=== PATIENT | male | born 1980 | race Two or more races ===

== ENCOUNTER 2024-09-02 10:26 | Emergency (ER) | payer MEDICAID, SELFPAY ==
[2024-09-02 10:27] VITALS: BP 159/90; PULSE 76; RESP 19; TEMP 37; O2SAT 96
[2024-09-02 10:48] VITALS: PULSE 92; RESP 22; O2SAT 99; BMI 32.3
--- NOTE | 2024-09-02 11:21 | PD.EDADULT ---
ED General RME/HPI General Chief complaint: Psychiatric Symptoms Stated complaint: MENTAL EVAL Time Seen by Provider: 09/02/24 10:46 Arrival date/time: 09/02/24 10:26 Limitations: no limitations RME / HPI RME / HPI narrative: DR. PENA MAIN ED EVALUATION: 44 year old male with past medical history significant for schizophrenia presents to the Emergency Department [facility] from half-way, patient was placed on a hold for gravely disabled by social worked at the half-way. Per EMS, half-way staff told them the patient did not want to talk at all. Here, he is oriented but chooses not to talk. EMS states the patient talked to them and he denies any suicidal ideation, homicidal ideation, or hallucinations. Related Data Home Medications ?Medication ?Instructions ?Recorded ?Confirmed atenolol 25 mg tablet 25 mg PO QDAY 07/29/19 06/02/21 albuterol sulfate 90 mcg/actuation 1 puff inhalation Q6H PRN ALLERGY 06/02/21 06/02/21 aerosol inhaler cyclobenzaprine 10 mg tablet 10 mg PO QDAY 06/02/21 06/02/21 fluticasone propionate 50 1 spray intranasal QDAY 06/02/21 06/02/21 mcg/actuation nasal spray,suspension lisinopril 20 mg tablet 20 mg PO QDAY 06/02/21 06/02/21 lovastatin 20 mg tablet 20 mg PO QDAY 06/02/21 06/02/21 metoclopramide HCl 10 mg tablet 10 mg PO BID 06/02/21 06/02/21 omeprazole 40 mg capsule,delayed 40 mg PO QDAY 06/02/21 06/02/21 release sucralfate 1 gram tablet 1 g PO BID 06/02/21 06/02/21 Allergies Allergy/AdvReac Type Severity Reaction Status Date / Time No Known Allergies Allergy Verified 09/02/24 10:52 Review of Systems Review of Systems Systems Reviewed: All systems reviewed, normal except as documented Past Medical History Past Medical History CARDIAC: Positive Hypercholesterolemia and Hypertension; Negative Congestive Heart Failure RESPIRATORY: Negative Chronic Obstructive Pulmonary Disease (COPD) GENITOURINARY: Negative Renal Disease ENDOCRINE: Negative Diabetes Mellitus Type 1 or Diabetes Mellitus Type 2 PSYCHO/SOCIAL: Positive Schizophrenia Social History SMOKING STATUS: Current every day smoker SUBSTANCE USE: methamphetamine ED Exam General Limitations: Present no limitations General appearance: Present alert and other (Does not want to answer any questions but he is alert. He is restless and moving his digits from bilateral upper and lower extremities. ) Head Head exam: Present atraumatic Eye Eye exam: Present normal appearance, PERRL and EOMI ENT ENT exam: Present normal exam, normal oropharynx and mucous membranes moist Neck Neck exam: Present normal inspection, full ROM and trachea midline Chest Chest inspection: Present normal inspection and symmetric chest wall rise Respiratory Respiratory exam: Present normal lung sounds bilaterally Cardiovascular Cardiovascular exam: Present regular rate, normal rhythm and normal heart sounds Abdominal Exam Abdominal exam: Present soft and normal bowel sounds Extremities Exam Extremities exam: Present normal inspection, full ROM and other (Left thumb blister.) Back Exam Back exam: Present normal inspection and full ROM Neurological Exam Neurological exam: Present alert, oriented X3 and CN II-XII intact Psychiatric Psychiatric exam: Present normal affect and normal mood Skin Skin exam: Present warm, dry, intact and normal color Course Quality Measures none Orders Category Date Time Status Diet Regular Diet 09/02/24 Dinner Active Acetaminophen Stat Lab 09/02/24 11:30 Completed Alcohol, Blood Medical Stat Lab 09/02/24 11:30 Completed Basic Metabolic Panel Stat Lab 09/02/24 11:30 Completed CBC Stat Lab 09/02/24 11:30 Completed Drug Screen,Urine Stat Lab 09/02/24 11:56 Completed Salicylate Stat Lab 09/02/24 11:30 Completed Haloperidol Lactate [Haldol Inj] Med 09/02/24 11:10 Discontinued 5 mg IM X1 ONE Vital Signs Vital signs: Vital Signs Temperature 98.6 F 09/02/24 10:27 Pulse Rate 76 09/02/24 10:27 Respiratory Rate 19 09/02/24 10:27 Blood Pressure 159/90 H 09/02/24 10:27 Pulse Oximetry (%) 96 09/02/24 10:27 Oxygen Delivery Method Room Air 09/02/24 10:27 Discharge Plan Prescriptions/Referrals Prescriptions/Med Rec: No Action cyclobenzaprine 10 mg tablet 10 mg PO QDAY sucralfate 1 gram tablet 1 g PO BID lisinopril 20 mg tablet 20 mg PO QDAY omeprazole 40 mg capsule,delayed release(DR/EC) 40 mg PO QDAY lovastatin 20 mg tablet 20 mg PO QDAY albuterol sulfate 90 mcg/actuation HFA aerosol inhaler 1 puff INHALATION Q6H PRN (Reason: ALLERGY) Patient Comments: INHALE 1 PUFF BY MOUTH EVERY 6 HOURS NEEDED fluticasone propionate 50 mcg/actuation spray,suspension 1 spray INTRANASAL QDAY Patient Comments: INSTILL ONE SPRAY IN EACH NOSTRIL EVERY DAY metoclopramide HCl 10 mg tablet 10 mg PO BID atenolol 25 mg Tablet 25 mg PO QDAY Referrals: No Primary/Family,Physician [Primary Care Provider] - In 1 week Problem List Clinical Impression: Chronic schizophrenia Patient/Caregiver Discharge Instructions Print Language: Samoan MDM Narrative [facility] hospital course: I, Sultana Gtz am scribing for and in the presence of Dr. Pena. Clinical Information Provided by patient Medical Records Reviewed [facility] Meds/Rx Considered, not Ordered None Labs/Rad/Tests considered, not Ordered None Chronic Illness/Social Conditions Add or document further as needed: schizophrenia EKG EKG not done Imaging Imaging interpretation: none Medication Administration(s) Medication Administration History Discontinued Medications Haloperidol Lactate (Haloperidol Lact Inj 5 Mg/Ml Vial) 5 mg IM X1 ONE Stop: 09/02/24 11:11 Last Admin: 09/02/24 11:36 Dose: 5 mg Documented By: CAROLE Diagnosis Differential diagnosis: schizophrenia, behavioral problem Dispositon Disposition: other (signed out to Dr. Brown) Disposition comments: 1800: Patient was signed out to Dr. Brown. Past medical, surgical, social and family history reviewed. Vitals and home medications reviewed. Results and treatment plan discussed. They will assume the care of the patient at this time and will follow the patient, pending placement.
[2024-09-02 11:32] VITALS: BMI 25.1
[2024-09-02] MEDS: HALOPERIDOL LACT INJ 5 MG/ML VIAL IM (11:36)
--- NOTE | 2024-09-02 11:39 | PC.NURSE ---
Patient present to ED with from sent from [facility] care home for gravely disabled 5150 hold. Per flight operations dispatch clerk was sent in due to not answering questions to staff at [facility], per flight operations dispatch clerk answered his questions denying SI/HI. Patient at this time when asked any question is answering only yes, without thinking about questions. Patient laying in gurney, following orders, but did not provide UA sample as decided to drink water from faucet instead. Patient is not appropriately answering all questions and is not responding well to Hull scale questions, Rn will attempt at a later time. evening sitter at bedside.
[2024-09-02 11:41] LABS: Basophils % (Auto) 0 % (0-2.5); Eosinophils % (Auto) 1 % (0-10); Hematocrit 40.8 % (41.0-53.0); Hemoglobin 13.9 g/dL (13.5-16.0); Immature Granulocytes % (Auto) 0 % (0-0); Immature Granulocytes Auto 0.03 Thou/mm3 (0.00-0.00); Lymphocytes # (Auto) 1.6 Thou/mm3 (1.0-4.8); Lymphocytes % (Auto) 19 % (10-50); Mean Corpuscular HGB Conc 34.1 g/dl (31.0-37.0); Mean Corpuscular Hemoglobin 27.3 pg (25.0-35.0); Mean Corpuscular Volume 80 fL (80-100); Monocytes # (Auto) 0.9 Thou/mm3 (0.0-0.8); Monocytes % (Auto) 11 % (0-12); Neutrophils # (Auto) 5.7 Thou/mm3 (1.8-7.7); Neutrophils % (Auto) 69 % (37-80); Nucleated Red Blood Cell % 0 /100 WBC (0); Platelet Count 165 Thou/mm3 (140-440); RDW Standard Deviation 35.1 fL (35.1-43.9); Red Blood Count 5.09 Miln/mm3 (4.50-5.90); White Blood Count 8.3 Thou/mm3 (3.8-10.6)
[2024-09-02 12:09] LABS: Acetaminophen < 2.0 mcg/mL (10.0-20.0); Alcohol, Blood Medical < 3.0 mg/dL (0-10.0); Anion Gap 13 (7-16); BUN/Creatinine Ratio 18 Ratio (12-20); Blood Urea Nitrogen 14 mg/dL (9-23); Calcium 9.2 mg/dL (8.3-10.6); Carbon Dioxide 24.5 mMol/L (20.0-31.0); Chloride 95 mMol/L (98-107); Creatinine (Component) 0.8 mg/dL (0.6-1.3); Estimated Creatinine Clearance 116.6 mL/min (>60); Glucose 111 mg/dL (74-106); Osmolality,Calculated 266 (275-295); Potassium 3.8 mMol/L (3.4-5.1); Salicylate < 3.0 mg/dL; Sodium 132 mMol/L (136-145); eGFR > 60 See Note
[2024-09-02 12:18] LABS: Amphetamine/Methamp Scrn,U Negative (Negative); Barbiturate Screen,Urine Negative (Negative); Benzodiazepines Screen,Urine Negative (Negative); Benzoylecgonine Screen, Ur Negative (Negative); Fentanyl Screen,Urine Negative (Negative); Opiate Screen,Urine Negative (Negative); THC Screen,Urine Negative (Negative)
--- NOTE | 2024-09-02 13:11 | PC.NURSE ---
RN spoke with Danae Keys at [facility], accepted by Dr Williamson, [address].
--- NOTE | 2024-09-02 13:11 | PC.CM ---
Pt Baltazar Keene is a 44-year-old male brought in to ED by ambulance on a hold from [facility]. Pt has extensive hx of mental health. Pt refusing to verbally engage with medical team. Pt placed in ED 7. Credit Portfolio Manager awaiting Tox report and medical clearance for Pt in order to create 5150 placement packet and begin looking for LPS placement for Pt. Pt medically cleared at this time and awaiting LPS placement.
--- NOTE | 2024-09-02 13:41 | PC.CC ---
Driftman received notification from [facility]- no bed available. [facility] accepted Pt with ETA of 1600. Driftman received call back from [facility] - acceptance was revoked due to Pt needs.
--- NOTE | 2024-09-02 13:45 | PC.CC ---
Spa Receptionist began contacting all adult LPS facilities. [facility] - no beds available [facility] - no beds available [facility] - no beds available [facility]- in consideration [facility] - [facility] beds available [facility]- [facility] beds available [facility]- in consideration
--- NOTE | 2024-09-02 14:10 | PC.CC ---
Guard Lieutenant continues to contact all adult LPS facilites [facility]- considering
--- NOTE | 2024-09-02 14:21 | PC.CC ---
Environmental Project Manager received telephone call from [facility], bed had become available, will call back with acceptance confirmation.
--- NOTE | 2024-09-02 14:46 | PC.CC ---
Informal Waiter/Waitress received phone from [facility]- No male beds available.
--- NOTE | 2024-09-02 17:24 | EDNOTE_ITS ---
Emergency Room Addendum <Sultana Gtz - Last Filed: 09/02/24 17:54> Addendum Narrative: I took over the care from Dr. Pena, the previous shift physician at 1800 hours on 08/29/2024.? See previous notes for complete H & P and ED course. I reviewed all diagnostic test results. My interpretation of the EKG is? My interpretation of the chest x-ray is My review of the CT report is? Blood tests and urine tests Diagnoses include Treatment here included Significant improvement Not yet done: I discussed the case with our hospitalist.? About the presentation and exam and diagnostics and treatments here.? And need of further care in the hospital. Will accept the patient. Not yet done: Based on my best medical judgment, made decision no further evaluation or treatment indicated at this time.? Patient understands and agrees to the [facility] rge instructions customized and printed, see below. Jesus Brown MD <Erendira Morrell - Last Filed: 09/03/24 02:49> Addendum Narrative: I took over the care from Dr. Pena, the previous shift physician at 1800 hours on 08/29/2024.? See previous notes for complete H & P and ED course. Patient was signed out to me pending 5150 psychiatric placement. Patient has remained stable while under my care. At 0600 on 09/03/2024, patient is signed out to Dr. Pena pending crisis evaluation. Jesus Brown MD <Jesus Brown MD - Last Filed: 09/03/24 02:57> Addendum Narrative: I took over the care from Dr. Pena, the previous shift physician, at 1800 on 08/29/2024.? See previous notes for complete H & P and ED course. Patient is waiting for inpatient psychiatric placement. At 0600 on 09/03/2024, transfer care to Dr. Pena. During my watch, the patient remained stable. Jesus Brown MD
[2024-09-02 18:25] VITALS: BP 152/84; PULSE 78; RESP 19; TEMP 37.1; O2SAT 96
[2024-09-03] VITALS (7 sets, daily range): BP systolic 132–165; BP diastolic 72–99; PULSE 69–85; RESP 16–20; TEMP 36.3–37; O2SAT 95–99
--- NOTE | 2024-09-03 04:31 | PC.NURSE ---
Pt awake, asking for a snack. Provided pt with sandwich, juice. Tolerated well. Pt denies any complaints at this time.
--- NOTE | 2024-09-03 05:35 | EDNOTE_ITS ---
Emergency Room Addendum <Erendira Morrell - Last Filed: 09/03/24 05:35> Addendum Narrative: 0530: Care assumed from Dr. Pena, the previous shift emergency physician. Past medical, surgical, social and family history reviewed. Vitals and home medications reviewed. Results and treatment plan discussed. I will assume the care of the patient at this time and will follow the patient, pending 5150 psychiatric placement. Please refer to the emergency department record for history and examination from initial visit. <Sultana Gtz - Last Filed: 09/03/24 17:59> Addendum Narrative: 0530: Care assumed from Dr. Pena, the previous shift emergency physician. Past medical, surgical, social and family history reviewed. Vitals and home medications reviewed. Results and treatment plan discussed. I will assume the care of the patient at this time and will follow the patient, pending 5150 psychiatric placement. Please refer to the emergency department record for history and examination from initial visit. The patient was placed in ED observation care at 09/03/2024 at 0600 hours. The patient was placed in ED observation care because of undifferentiated decomp ensated behavioral health evaluation, no behavioral health bed available. The patients past medical history, social history, and family history were reviewed. The plan of care will include serial examinations. While in ED observation the patient will have access to water, food, and personal hygiene. If the patient takes home medication(s), they will be continued in ED observation. Physical exam by me shows patient under no acute distress at this time. 1800: Patient was signed out to Dr. Delgado. Past medical, surgical, social and family history reviewed. Vitals and home medications reviewed. Results and treatment plan discussed. They will assume the care of the patient at this time and will follow the patient, pending placement. My ED observation care ended at 09/03/2024 at 0600 hours.
--- NOTE | 2024-09-03 07:52 | PC.CC ---
Addendum entered by Kate Prabhakar 09/03/24 17:02: ASW contacted the following [facility] facilities and they have declined due to capacity: Kory Nagy In que: [facility] Declined due to past h/o of aggression: Jeff Garcia Original Note: ASW will resubmit the pts chart to all [facility] via William and will f/u with calls to local facilites as well.
--- NOTE | 2024-09-03 18:18 | PD.EDADDENDU ---
Emergency Room Addendum Addendum Narrative: 1800: Care assumed from Dr. Pena (emergency physician). Past medical, surgical, social and family history reviewed. Vitals and home medications reviewed. Results and treatment plan discussed. They will assume the care of the patient at this time and will follow the patient, pending transfer. The following addendum documentation note is intended to reflect any pending information, findings, or radiology results not included in the patient?s initial chart by the previous shift scribe. 0600: [facility] [place] [facility]. Past medical, surgical, social and family history reviewed. Vitals and home medications reviewed. Results and treatment plan discussed. They will assume the care of the patient at this time and will follow the patient, pending transfer to psych facility.
[2024-09-04 04:00] VITALS: BP 147/87; PULSE 72; RESP 19; TEMP 36.4; O2SAT 96
--- NOTE | 2024-09-04 07:20 | EDNOTE_ITS ---
Emergency Room Addendum Addendum Narrative: 0600: Care assumed from Dr. Delgado, the previous shift emergency physician. Past medical, surgical, social and family history reviewed. Vitals and home medications reviewed. I will assume the care of the patient at this time, pending psychiatric placement. Please refer to the emergency department record for history and examination from initial visit. The patient was placed in ED observation care at 09/04/2024 at 0600 hours. The patient was placed in ED observation care because of undifferentiated decompensated behavioral health evaluation, no behavioral health bed available. The patients past medical history, social history, and family history were reviewed. The plan of care will include serial examinations. While in ED observation the patient will have access to water, food, and personal hygiene. If the patient takes home medication(s), they will be continued in ED observation. Physical exam by me shows patient under no acute distress at this time. 1007: Patient has been accepted to [facility]. ETA is 1230 hours. 1225: EMS here to pick the patient and transport to [facility]. ED observation care ended at 09/04/2024 at 1225 hours.
--- NOTE | 2024-09-04 08:05 | PC.CC ---
Addendum entered by Kayli Degroot 09/04/24 09:01: 0857 [facility], Aprita reports they closed referral to resend it. ASW [facility]. [facility] and is probably still being transmitted. ASW refaxed referral. 0845 [facility] [place] patient is still in queue they will be reviewing packet[facility] and notify social media strategist. 0837 [facility] Melissa Higginbotham reports that there are no open male beds. Original Note: Kayli ENCARNACION resent referral to [facility] facilities via fax. ASW made telephone with [facility] spoke to staff, Loli who reports that patient has not been connected to them since July of 2024 due to not being compliant with outpatient mental health services.
[2024-09-04 08:23] VITALS: BP 150/90; PULSE 71; RESP 18; TEMP 36.8; O2SAT 96
--- NOTE | 2024-09-04 09:08 | PC.NURSE ---
Patient lying in gurney quietly no distress noted, patient states he does not know what he is waiting for, patiient made aware of plan of care. Patient alert and oriented x 3, skin is warm dry and pink, patient awaiting placement for being gravely disabled, umable to care for himself. Patient denies pain, patient denies SI and HI, patient denies feeling depressed. Patient states he does have trouble sleeping at night and has had trouble for years. Patient ate breakfast this am. [address] Patient has no other needs at this time.
--- NOTE | 2024-09-04 09:53 | PC.NURSE ---
Report given to BEE nurse at [facility], Dr. Rojo accepting patient to their facility will accept patient at 1400 today, will notify S/S worker Daniel to set up transport, charge nurse minerva schmitt.
--- NOTE | 2024-09-04 09:53 | PC.CC ---
ASWKayli was provided with accepting information. Patient was accepted to [facility], Dr. Rojo is accepting. ASW to arrange transportation. ASW provided updated d/c plan to Dr. Mccullough, electronic typesetting machine operator Lanise, and bedside CHELLE Rendon.
[2024-09-04 12:06] VITALS: BP 148/91; PULSE 68; RESP 18; TEMP 36.8; O2SAT 96
--- NOTE | 2024-09-04 12:33 | PC.NURSE ---
Sample Dye Mix[facility] here to transport patient to [facility], Report given.
== END 2024-09-04 12:40 ==
PROVIDERS: Family Medicine; Emergency Provider Emergency Medicine
DX: Z04.6 Encounter for general psychiatric examination, requested by authority (principal); F20.9 Schizophrenia, unspecified
CPT/HCPCS: 36415; 80048; 80307; 80320; 80329; 85025; 96127; 96372; 99285; J1630; G0480

== ENCOUNTER 2024-09-25 02:25 | Emergency (ER) | payer MEDICAID, SELFPAY ==
[2024-09-25 02:31] VITALS: BP 146/95; PULSE 75; RESP 19; TEMP 37.3; O2SAT 96
--- NOTE | 2024-09-25 02:43 | XR_ITS ---
Examination: CT abdomen with intravenous contrast CT pelvis with intravenous contrast 2-D coronal reconstructions 2-D sagittal reconstructions Date and time of exam:September 25, 2024, 0512 hours INDICATIONS: Abdominal pain nausea vomiting beginning 7 days ago, diagnosis cirrhosis. CTDI: vol (mGy) 9.72. DLP: (mGycm) 647. Technique: Multiple axial sections of the abdomen and pelvis have been obtained. 64 slice high-resolution scanner used. 3 mm axial sections have been obtained, post intravenous injection of 60 cc [id number] 2-D sagittal, coronal reconstructions obtained. Low dose protocols were performed. One or more of the following dose reduction techniques were used; automated exposure control, adjustment of the mA and/or KV according to patient size, use of iterative reconstruction technique. Findings: Cirrhosis, liver nodular in contour Mild to moderate ascites Thickening of the gastric singh Thickening of the gallbladder wall No pancreatic mass is No hydronephrosis No bowel obstruction Aorta normal size Normal appendix Thickening of the urinary bladder wall Intact osseous structures IMPRESSION: Cirrhosis [id number] ascites. Gastritis pattern Gallbladder wall edema, clinical correlation is advised, consider HIDA scan or MRCP follow-up Cystitis pattern
[2024-09-25 03:15] LABS: Collection Type, Urine Clean Catch; RBC,Urine 0 /hpf (0-3)
[2024-09-25 03:22] LABS: Amorphous Crystals,Urine Present (Absent); Bacteria,Urine 1+; Bilirubin,Urine 4+ (Negative); Blood,Urine Negative (Negative); Clarity,Urine Turbid (Clear/Hazy); Color,Urine Drk-Yellow (Lt Yel-Yel); Glucose, Urine 2+ (Negative); Granular Casts,Urine < 1 /hpf (0-1); Ketones,Urine Negative (Negative); Leukocyte Esterase,Urine Negative (Negative); Nitrite,Urine Negative (Negative); PH,Urine 6.0 (5.0-7.0); Protein,Urine Trace (Neg - Trace); Specific Gravity,Urine 1.023 (1.001-1.035); Squamous Epithelial Cell,Urine 1 /hpf (0-5); Urobilinogen,Urine Negative mg/dL (0.0-1.0); WBC,Urine 18 /hpf (0-5)
[2024-09-25 03:23] LABS: Culture Indicated,Urine Yes
[2024-09-25 03:38] LABS: Lactate (Lactic Acid) 3.2 mMol/L (0.4-2.0)
[2024-09-25 03:40] LABS: Basophils # (Auto) 0.0 Thou/mm3 (0.0-0.2); Basophils % (Auto) 0 % (0-2.5); Eosinophils # (Auto) 0.2 Thou/mm3 (0.0-0.5); Eosinophils % (Auto) 2 % (0-10); Hematocrit 41.7 % (41.0-53.0); Hemoglobin 14.0 g/dL (13.5-16.0); Immature Granulocytes Auto 0.09 Thou/mm3 (0.00-0.00); Lymphocytes # (Auto) 2.7 Thou/mm3 (1.0-4.8); Lymphocytes % (Auto) 27 % (10-50); Mean Corpuscular HGB Conc 33.6 g/dl (31.0-37.0); Mean Corpuscular Hemoglobin 27.3 pg (25.0-35.0); Mean Corpuscular Volume 81 fL (80-100); Monocytes # (Auto) 1.5 Thou/mm3 (0.0-0.8); Monocytes % (Auto) 15 % (0-12); Neutrophils # (Auto) 5.6 Thou/mm3 (1.8-7.7); Neutrophils % (Auto) 56 % (37-80); Nucleated Red Blood Cell # 0.00 Thou/mm3 (0.00-0.00); Nucleated Red Blood Cell % 0 /100 WBC (0); Platelet Count 142 Thou/mm3 (140-440); RDW Standard Deviation 49.6 fL (35.1-43.9); Red Blood Count 5.12 Miln/mm3 (4.50-5.90); White Blood Count 10.1 Thou/mm3 (3.8-10.6)
[2024-09-25 04:17] LABS: INR 2.6 (0.9-1.3); Partial Thromboplastin Time 44.4 Seconds (22.0-36.0); Prothrombin Time 27.0 Seconds (9.0-12.2)
[2024-09-25 04:21] LABS: Alanine Aminotransferase 594 U/L (10-49); Albumin, Serum 2.9 gm/dL (3.5-5.0); Albumin/Globulin Ratio 0.6 (1.2-2.2); Alkaline Phosphatase 253 U/L (46-116); Anion Gap 6 (7-16); Aspartate Amino Transferase 302 U/L (0-34); BUN/Creatinine Ratio 6 Ratio (12-20); Blood Urea Nitrogen < 5 mg/dL (9-23); Calcium 8.0 mg/dL (8.3-10.6); Calcium (Corrected) 8.9 mg/dL (8.5-10.1); Carbon Dioxide 24.3 mMol/L (20.0-31.0); Chloride 97 mMol/L (98-107); Creatinine (Component) 0.9 mg/dL (0.6-1.3); Globulin 4.6 gm/dL (2.3-3.5); Glucose 152 mg/dL (74-106); Lipase 54 U/L (12-53); Osmolality,Calculated 255 (275-295); Potassium 3.6 mMol/L (3.4-5.1); Procalcitonin 0.76 ng/ml (0.0-0.49); Sodium 127 mMol/L (136-145); Total Protein 7.5 gm/dL (5.7-8.2); eGFR > 60 See Note
[2024-09-25] MEDS: ONDANSETRON INJ 2 MG/ML INJ 2 ML 4 MG IV (04:34)
--- NOTE | 2024-09-25 04:43 | XR_ITS ---
Examination: AP chest single view TECHNIQUE: AP portable upright chest single view Date and time: September 25, 2024 0459 hours INDICATIONS: Epigastric pain today. FINDINGS: Normal heart size. The lungs are clear. The osseous structures are intact. IMPRESSION: No active disease.
[2024-09-25 04:47] LABS: Bilirubin,Total 22.5 mg/dL (0.3-1.2)
--- NOTE | 2024-09-25 04:53 | XR_ITS ---
Examination: Abdomen sonogram, Limited Date and time of exam: September 25, 2024 0742 hours INDICATIONS: Elevated liver function tests on laboratory examination today including bilirubin Technique: Real-time chapman scale transabdominal sonographic images of the upper abdomen obtained. Findings: Negative for gallstones Gallbladder wall 0.42 cm no edema Common bile duct 0.3 cm Pancreatic head 3.2 cm Liver 14.0 cm irregular contour fatty infiltration, mild ascites Normal hepatopedal portal venous flow Patent IVC IMPRESSION: Negative for cholelithiasis, gallbladder wall mildly thickened but the patient has ascites Cirrhosis
--- NOTE | 2024-09-25 05:39 | PD.EDABDPN ---
ED Abdominal Pain RME/HPI General Chief Complaint: Abdominal Pain Stated complaint: ABD PAIN Time seen by provider: 09/25/24 02:41 Arrival date/time: 09/25/24 02:25 44M with history of DM, HTN, drug use, psych, and recently diagnosed cirrhosis presents to ED with 1 week of gen ab pain/bloating, as well as some non-bloody N/V and diarrhea. Patient has never been tapped before. Patient was recently discharged from [facility] and was told he had Type 2 hepatitis. More likely hep B, given patient is on Tenofovir. Limitations: no limitations Related Data Home Medications ?Medication ?Instructions ?Recorded ?Confirmed atenolol 25 mg tablet 25 mg PO QDAY 07/29/19 09/04/24 lisinopril 20 mg tablet 20 mg PO QDAY 06/02/21 09/04/24 lovastatin 20 mg tablet 20 mg PO QDAY 06/02/21 09/04/24 lovastatin 40 mg tablet 40 mg PO .qd 09/04/24 09/04/24 metformin 500 mg tablet 500 mg PO QAM 09/04/24 09/04/24 Allergies Allergy/AdvReac Type Severity Reaction Status Date / Time No Known Allergies Allergy Verified 09/25/24 02:25 Review of Systems Review of Systems Systems Reviewed: All systems reviewed, normal except as documented Constitutional Constitutional: Reports system reviewed and no additional complaints, except as documented, Denies fever(s) and Denies headache(s) ENT Ears, Nose, Mouth, and Throat: Denies disequilibrium and Denies headache(s) Cardiovascular Cardiovascular: Reports system reviewed and no additional complaints, except as documented, Denies chest pain and Denies dyspnea Respiratory Respiratory: Reports system reviewed and no additional complaints, except as documented, Denies cough and Denies dyspnea Gastrointestinal Gastrointestinal: Reports system reviewed and no additional complaints, except as documented, Reports as per HPI, Reports abdominal pain, Reports diarrhea, Reports nausea and Reports vomiting Neurologic Neurologic: Reports system reviewed and no additional complaints, except as documented, Denies confusion, Denies disequilibrium and Denies headache(s) Psychiatric Psychiatric: Denies confusion Past Medical History Past Medical History CARDIAC: Positive Cardiac Disorders, Hypercholesterolemia and Hypertension; Negative Congestive Heart Failure RESPIRATORY: Negative Chronic Obstructive Pulmonary Disease (COPD) or Asthma GENITOURINARY: Negative Renal Disease ENDOCRINE: Positive Diabetes Mellitus Type 2; Negative Diabetes Mellitus Type 1 HEMATOLOGIC: Negative Sickle Cell Disease PSYCHO/SOCIAL: Positive Schizophrenia Social History SMOKING STATUS: Never smoker SUBSTANCE USE: methamphetamine ED Exam General Limitations: Present no limitations General appearance: Present alert and in no apparent distress Head Head exam: Present atraumatic Eye Eye exam: Present normal appearance, PERRL and EOMI ENT ENT exam: Present normal exam, normal oropharynx and mucous membranes moist Neck Neck exam: Present normal inspection, full ROM and trachea midline Chest Chest inspection: Present normal inspection and symmetric chest wall rise Respiratory Respiratory exam: Present normal lung sounds bilaterally Cardiovascular Cardiovascular exam: Present regular rate, normal rhythm and normal heart sounds Abdominal Exam Abdominal exam: Present soft and normal bowel sounds Abdominal tenderness: Present diffuse and mild Extremities Exam Extremities exam: Present normal inspection and full ROM Back Exam Back exam: Present normal inspection and full ROM Neurological Exam Neurological exam: Present alert, oriented X3 and CN II-XII intact Psychiatric Psychiatric exam: Present normal affect and normal mood Skin Skin exam: Present warm, dry, intact and normal color Course Quality Measures none Orders Category Date Time Status CT Screening NOW Care 09/25/24 02:43 Completed Insert IV NOW Care 09/25/24 02:43 Completed MRI Screening NOW Care 09/25/24 07:[address] abdomen pelvis w con Stat Exams 09/25/24 02:43 Completed US gall bladder Stat Exams 09/25/24 04:53 Completed XR chest 1V portable Stat Exams 09/25/24 04:43 Completed Ammonia Stat Lab 09/25/24 06:25 Completed Bilirubin,Direct Stat Lab 09/25/24 10:01 Completed Blood Culture (Lab) Stat Lab 09/25/24 06:25 Received CBC Stat Lab 09/25/24 03:20 Completed CMP [Comprehensive Metabolic Panel] Stat Lab 09/25/24 03:20 Completed Direct Kavon Stat Lab 09/25/24 10:01 Completed INR [Prothrombin Time with INR] Stat Lab 09/25/24 03:20 Completed LDH (Lactate Dehydrogenase) Stat Lab 09/25/24 10:01 Completed Lactate (Lactic Acid) Stat Lab 09/25/24 03:20 Completed Lactic Acid, 3 HR Stat Lab 09/25/24 08:16 Completed Lipase Stat Lab 09/25/24 03:20 Completed PTT [Partial Thromboplastin Time] Stat Lab 09/25/24 03:20 Completed Procalcitonin Stat Lab 09/25/24 03:20 Completed Urinalysis, C/S if Indicated Stat Lab 09/25/24 03:10 Completed Urine Culture Stat Lab 09/25/24 03:10 Received Albumin Human 25% Ivpb [Albuminar-25 Ivpb] Med 09/25/24 05:02 Discontinued 25 gm in 100 ml IV X1 Ondansetron Inj [Zofran Inj] Med 09/25/24 02:44 Discontinued 4 mg IV X1 ONE Pantoprazole Inj [Protonix Inj] Med 09/25/24 02:44 Discontinued 40 mg IVP X1 ONE Vital Signs Vital signs: Vital Signs Temperature 99.2 F 09/25/24 02:31 Pulse Rate 75 09/25/24 02:31 Respiratory Rate 19 09/25/24 02:31 Blood Pressure 146/95 H 09/25/24 02:31 Pulse Oximetry (%) 96 09/25/24 02:31 Oxygen Delivery Method Room Air 09/25/24 02:31 O2 at 96% on RA and WNLs Abdominal Pain MDM MDM Narrative MDM Narrative:: 44M with history of DM, HTN, drug use, psych, and recently diagnosed cirrhosis presents to ED with 1 week of gen ab pain/bloating, as well as some non-bloody N/V and diarrhea. Patient has never been tapped before. Patient was recently discharged from [facility] and was told he had Type 2 hepatitis. More likely hep B, given patient is on Tenofovir. Physical exam reveals mild gen ab tenderness, greatest in epigastric region. Also ab distention. Normal WOB. Patient is afebrile, calm, and alert. No leukocytosis or anemia. Procal/lactate mildly elevated. CMP remarkable for moderately low Na and Cl. Bili 22. LFTS elevated. Cr and BUN normal. Albumin low. Lipase normal. UA possible UTI, but no gross proteins. More likely SBP vs CBD stone vs gastritis. Care signed out to resident Dr. De Santiago (doing rotation with attending Dr. Wood, EM) pending CT/US read and dispo. Patient was eventually discharged. Patient data External records reviewed:: [facility] previous records Clinical information provided by:: patient Social determinants that could affect healthcare access:: mental health Patient has the following chronic illnesses:: DM, HTN, drug use, psych, and recently diagnosed cirrhosis How is presenting disease/condition affected by chronic disease/condition?: exacerbated by Evaluation data The following diagnostics were reviewed and interpreted by me:: lab results and radiology exam(s) Lab and/or radiology exams considered but not ordered:: ordered Interpretation Summary: above Medications / Prescriptions Medications or Prescriptions considered but not ordered:: ordered Medication administrations:: Medication Administration History Discontinued Medications Albumin Human (Albuminar-25 Ivpb) 25 gm in 100 mls @ 100 mls/hr IV X1 ONE Stop: 09/25/24 06:01 Last Infusion: 09/25/24 07:46 Dose: Infused Documented By: Admin: 09/25/24 06:36 Dose: 100 mls/hr Documented By: CG Ondansetron HCl (Ondansetron Inj 2 Mg/Ml Inj 2 Ml) 4 mg IV X1 ONE; Protocol Stop: 09/25/24 02:45 Last Admin: 09/25/24 04:34 Dose: 4 mg Documented By: CVL Pantoprazole Sodium (Pantoprazole Inj 40 Mg Vial) 40 mg IVP X1 ONE Stop: 09/25/24 02:45 Last Admin: 09/25/24 04:42 Dose: 40 mg Documented By: CVL above Consultations Consultation(s) initiated? (list below): Yes Diagnosis Differential diagnosis abdominal pain: abdominal pain, acute appendicitis, calculus of kidney, constipation, diverticulitis, endometriosis, gastroenteritis, pancreatitis, small bowel obstruction and other (ascites) Most likely diagnosis given after review of the tests above:: ascites Admission Indicated Admission indicated?: not indicated Admission Request Was there a request for admission?: No Disposition Plan Disposition Plan: Discharge Discharge Attestation Discharge Attestation: The patient and all family members were given an opportunity to ask questions and understood the discharge instructions. Discharge instructions specifically effects, indications for sooner follow up or return to the emergency department, and the expected course of current diagnosis. Patient condition: Stable Discharge Plan Plan Patient Disposition: HOME (Self Care) Prescriptions/Referrals Prescriptions/Med Rec: No Action lisinopril 20 mg tablet 20 mg PO QDAY lovastatin 20 mg tablet 20 mg PO QDAY atenolol 25 mg Tablet 25 mg PO QDAY metformin 500 mg tablet 500 mg PO QAM lovastatin 40 mg tablet 40 mg PO .qd Patient Comments: TAKE ONE TABLET BY MOUTH EVERY EVENING WITH FOOD FOR CHOLESTEROL Referrals: Antonio Morrell MD [Primary Care Provider] - In 1 week Problem List Clinical Impression: Abdominal ascites Patient/Caregiver Discharge Instructions Education Materials: ED Ascites Additional Instructions: Follow up with your primary care physician within 1 week of discharge You have an appointment tomorrow with your PCP please do not miss your appointment on 09/26/2024 Your hyperbilirubinemia, lactic acidosis could be caused by your Hepatitis medication Tenofovir, please follow up with your liver doctor with regards to this medication. Please continue your medications as prescribed. Should your symptoms recur or worsen patient is instructed to return to the ED. Print Language: Nepali Stand Alone Forms: Annalise Award Info., Patient Portal Info Letter
--- NOTE | 2024-09-25 06:04 | PRELIM_ITS ---
CT scan of the abdomen and pelvis with intravenous contrast (axial sections with sagittal and coronal reformats) September 25, 2024 0512 hours Clinical History: Pain, N/V; cirrhosis Comparison:No prior study is available for comparison. Findings: Bibasilar streaky atelectasis is present. The liver demonstrates a nodular contour, consistent with cirrhosis. There is gastric wallthickeningwhich may represent gastritis or portal hypertensive gastropathy. There isgallbladder wall edema with subtle pericholecystic fat stranding,The pancreas, spleen, kidneys and adrenals are unremarkable. No evidence of bowel obstruction. The appendix is within normal limits.There is no mesenteric or retroperitoneal adenopathy. There is thickening of the urinary bladder wall. There is no free air. The osseous structures are unremarkable. Impression: Liver cirrhosis. Moderate ascites. Findings suggestive of gastritis versus portal hypertensive gastropathy. GB wall edema with possible cholecystitis. Recommend further evaluation with sonography, if clinically indicated. Cystitis. Other findings as described above. Report Electronically Signed By: Alex Portillo 09/25/2024 6:04:43 AM [EST]
[2024-09-25 06:20] VITALS: BP 139/81; PULSE 66; RESP 18; TEMP 36.9; O2SAT 98
[2024-09-25 06:34] LABS: Reflex Lactate? Y
--- NOTE | 2024-09-25 06:34 | PD.EDADULT ---
ED General RME/HPI General Chief complaint: Abdominal Pain Stated complaint: ABD PAIN Time Seen by Provider: 09/25/24 02:41 Arrival date/time: 09/25/24 02:25 Limitations: no limitations RME / HPI RME / HPI narrative: See [facility] Related Data Home Medications ?Medication ?Instructions ?Recorded ?Confirmed atenolol 25 mg tablet 25 mg PO QDAY 07/29/19 09/04/24 lisinopril 20 mg tablet 20 mg PO QDAY 06/02/21 09/04/24 lovastatin 20 mg tablet 20 mg PO QDAY 06/02/21 09/04/24 lovastatin 40 mg tablet 40 mg PO .qd 09/04/24 09/04/24 metformin 500 mg tablet 500 mg PO QAM 09/04/24 09/04/24 Allergies Allergy/AdvReac Type Severity Reaction Status Date / Time No Known Allergies Allergy Verified 09/25/24 02:25 Review of Systems Review of Systems Systems Reviewed: All systems reviewed, normal except as documented ED Exam Narrative Physical exam: GENERAL: NAD, AAOx3, jaundiced HEENT: Moist mucosa. Eyes open, symmetrical, & icterus CARDIO: Heart RRR, no obvious murmurs PULM: No noted coughing/dyspnea CTA B/L, no R/W/R GI: Abdomen soft, distended, pain on palpation in epigastric. BSx4 SKIN/MSK/EXT: No wounds/rashes/edema/amputations, no pain on palpation. Pedal pulses present B/L NEURO: AAOx3, no focal neuro deficits, able to move all 4 extremities General Limitations: Present no limitations General appearance: Present alert and in no apparent distress Course Course Course Narrative: See [facility] Quality Measures none Orders Category Date Time Status CT Screening NOW Care 09/25/24 02:43 Active Insert IV NOW Care 09/25/24 02:43 Active MRI Screening NOW Care 09/25/24 07:[address] abdomen pelvis w con Stat Exams 09/25/24 02:43 Completed US gall bladder Stat Exams 09/25/24 04:53 Completed XR chest 1V portable Stat Exams 09/25/24 04:43 Completed Ammonia Stat Lab 09/25/24 06:25 Completed Bilirubin,Direct Stat Lab 09/25/24 10:01 Completed Blood Culture (Lab) Stat Lab 09/25/24 06:25 Received CBC Stat Lab 09/25/24 03:20 Completed CMP [Comprehensive Metabolic Panel] Stat Lab 09/25/24 03:20 Completed Direct Kavon Stat Lab 09/25/24 10:01 Received INR [Prothrombin Time with INR] Stat Lab 09/25/24 03:20 Completed LDH (Lactate Dehydrogenase) Stat Lab 09/25/24 10:01 Completed Lactate (Lactic Acid) Stat Lab 09/25/24 03:20 Completed Lactic Acid, 3 HR Stat Lab 09/25/24 08:16 Completed Lipase Stat Lab 09/25/24 03:20 Completed PTT [Partial Thromboplastin Time] Stat Lab 09/25/24 03:20 Completed Procalcitonin Stat Lab 09/25/24 03:20 Completed Urinalysis, C/S if Indicated Stat Lab 09/25/24 03:10 Completed Urine Culture Stat Lab 09/25/24 03:10 Received Albumin Human 25% Ivpb [Albuminar-25 Ivpb] Med 09/25/24 05:02 Discontinued 25 gm in 100 ml IV X1 Ondansetron Inj [Zofran Inj] Med 09/25/24 02:44 Discontinued 4 mg IV X1 ONE Pantoprazole Inj [Protonix Inj] Med 09/25/24 02:44 Discontinued 40 mg IVP X1 ONE Vital Signs Vital signs: Vital Signs Temperature 99.2 F 09/25/24 02:31 Pulse Rate 75 09/25/24 02:31 Respiratory Rate 19 09/25/24 02:31 Blood Pressure 146/95 H 09/25/24 02:31 Pulse Oximetry (%) 96 09/25/24 02:31 Oxygen Delivery Method Room Air 09/25/24 02:31 Discharge Plan Plan Patient Disposition: HOME (Self Care) Prescriptions/Referrals Prescriptions/Med Rec: No Action lisinopril 20 mg tablet 20 mg PO QDAY lovastatin 20 mg tablet 20 mg PO QDAY atenolol 25 mg Tablet 25 mg PO QDAY metformin 500 mg tablet 500 mg PO QAM lovastatin 40 mg tablet 40 mg PO .qd Patient Comments: TAKE ONE TABLET BY MOUTH EVERY EVENING WITH FOOD FOR CHOLESTEROL Referrals: Antonio Morrell MD [Primary Care Provider] - In 1 week Problem List Clinical Impression: Abdominal ascites Patient/Caregiver Discharge Instructions Education Materials: ED Ascites Additional Instructions: Follow up with your primary care physician within 1 week of discharge You have an appointment tomorrow with your PCP please do not miss your appointment on 09/26/2024 Your hyperbilirubinemia, lactic acidosis could be caused by your Hepatitis medication Tenofovir, please follow up with your liver doctor with regards to this medication. Please continue your medications as prescribed. Should your symptoms recur or worsen patient is instructed to return to the ED. 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 Patient states she started having abdominal pain about 1 week ago with associated nausea and nonbloody vomiting. He also endorses that his belly has been increasing in size. He also endorses watery diarrhea. He denies fever, chills, shortness of breath, palpitations, chest pain, recent travel, sick contacts. 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 Labs reviewed CBC unremarkable, coagulation panel abnormal, hyponatremia, lactic acid 3.2, T. bili 22.5, AST ALT elevated, alk phos elevated, lipase 54, Pro-Sebastian 0.76 CT abdomen pelvis shows Liver cirrhosis, Moderate ascites, Findings suggestive of gastritis versus portal hypertensive gastropathy, GB wall edema with possible cholecystitis 1030: Gallbladder ultrasound shows Negative for cholelithiasis, gallbladder wall mildly thickened but the patient has ascites, Cirrhosis Patient at this time is safe for discharge as symptoms have resolved. You have fluid on your abdomen however there is not enough fluid to tap at this time. Follow up with your primary care physician within 1 week of discharge. You have an appointment tomorrow with your PCP please do not miss your appointment on 09/26/2024. Your hyperbilirubinemia, lactic acidosis could be caused by your Hepatitis medication Tenofovir, please follow up with your liver doctor with regards to this medication as well as management for your cirrhosis. Please continue your medications as prescribed. Should your symptoms recur or worsen patient is instructed to return to the ED. Clinical Information Provided by patient and EMS Medical Records Reviewed [facility] Chronic Illness/Social Conditions which may negatively complicate care or outcome(s)-explain: Liver disease Medication Administration(s) Medication Administration History Discontinued Medications Albumin Human (Albuminar-25 Ivpb) 25 gm in 100 mls @ 100 mls/hr IV X1 ONE Stop: 09/25/24 06:01 Last Infusion: 09/25/24 07:46 Dose: Infused Documented By: Admin: 09/25/24 06:36 Dose: 100 mls/hr Documented By: CG Ondansetron HCl (Ondansetron Inj 2 Mg/Ml Inj 2 Ml) 4 mg IV X1 ONE; Protocol Stop: 09/25/24 02:45 Last Admin: 09/25/24 04:34 Dose: 4 mg Documented By: CVL Pantoprazole Sodium (Pantoprazole Inj 40 Mg Vial) 40 mg IVP X1 ONE Stop: 09/25/24 02:45 Last Admin: 09/25/24 04:42 Dose: 40 mg Documented By: CVL
[2024-09-25] MEDS: ALBUMIN HUMAN 25% IVPB 25 GM/100 ML BTL IV (06:36)
[2024-09-25 07:01] LABS: Ammonia < 10 uMol/L (11-32)
[2024-09-25 07:47] VITALS: BP 142/78; PULSE 69; RESP 16; TEMP 36.9; O2SAT 96
[2024-09-25 08:30] LABS: Lactic Acid, 3 HR 3.0 mMol/L (0.4-2.0)
--- NOTE | 2024-09-25 08:39 | PC.NURSE ---
Report received from pm nurse, patient to er with c/o abdominal pain, n/vomiting/diarrhea. Patient states he vomited x 2 while in the ER was given zofran and has no c/o n/vomiting since then. Skin is warm dry and jaundice as well as jaundice noted to christiano. eyes. Patient c/o 8/10 pain to mid abd. which is distended, firm and tender, patient awaiting u/s results. Will notify md of painscale to abdomen. Call light within reach.
[2024-09-25 09:00] VITALS: BP 138/76; PULSE 70; RESP 14; O2SAT 95
[2024-09-25 10:25] VITALS: BP 137/72; PULSE 74; RESP 18; TEMP 36.8; O2SAT 96
[2024-09-25 10:34] LABS: Bilirubin,Direct 13.0 mg/dL (0.0-0.3); LDH (Lactate Dehydrogenase) 272 U/L (120-246)
[2024-09-25 11:46] VITALS: BP 142/85; PULSE 81; RESP 17; TEMP 36.9; O2SAT 97
== END 2024-09-25 12:44 | disposition home or self-care (01) ==
PROVIDERS: Physician Assistant; Emergency Provider Student in an Organized Health Care Education/Training Program; PCP Family Medicine
DX: K74.60 Unspecified cirrhosis of liver (principal); R18.8 Other ascites
CPT/HCPCS: 36415; 71045; 74177; 76705; 80053; 81001; 82140; 82248; 83605; 83615; 83690; 84145; 85025; 85610; 85730; 86880; 87040; 87086; 96365; 96375; 99284; A4649; J2405; J2470; P9047; Q9967

== ENCOUNTER 2024-09-29 09:40 | Emergency (ER) | payer MEDICAID, SELFPAY ==
[2024-09-29] VITALS (10 sets, daily range): BP systolic 108–147; BP diastolic 55–93; PULSE 64–88; RESP 14–18; TEMP 36.4–37.1; O2SAT 95–99
--- NOTE | 2024-09-29 10:04 | PD.EDRME ---
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 I have greeted and performed a focused initial assessment of this patient. A comprehensive ED assessment and evaluation of the patient, analysis of all test results, and completion of the medical decision making process will be conducted by additional ED providers. Chief Complaint: Abdominal Pain Time Seen by Provider: 09/29/24 09:42 Vital signs: Vital Signs Temperature 98.2 F 09/29/24 09:53 Pulse Rate 88 09/29/24 09:53 Respiratory Rate 18 09/29/24 09:53 Blood Pressure 146/88 H 09/29/24 09:53 Pulse Oximetry (%) 98 09/29/24 09:53 Oxygen Delivery Method Room Air 09/29/24 09:53 Vital signs reviewed by provider: Yes
[2024-09-29 10:37] LABS: Collection Type, Urine Clean Catch; RBC,Urine 0 /hpf (0-3)
[2024-09-29 10:48] LABS: Basophils # (Auto) 0.0 Thou/mm3 (0.0-0.2); Basophils % (Auto) 0 % (0-2.5); Eosinophils # (Auto) 0.1 Thou/mm3 (0.0-0.5); Eosinophils % (Auto) 1 % (0-10); Hematocrit 37.6 % (41.0-53.0); Hemoglobin 12.9 g/dL (13.5-16.0); Immature Granulocytes Auto 0.05 Thou/mm3 (0.00-0.00); Lymphocytes # (Auto) 1.5 Thou/mm3 (1.0-4.8); Lymphocytes % (Auto) 17 % (10-50); Mean Corpuscular HGB Conc 34.3 g/dl (31.0-37.0); Mean Corpuscular Hemoglobin 28.1 pg (25.0-35.0); Mean Corpuscular Volume 82 fL (80-100); Monocytes # (Auto) 1.1 Thou/mm3 (0.0-0.8); Monocytes % (Auto) 12 % (0-12); Neutrophils # (Auto) 6.1 Thou/mm3 (1.8-7.7); Neutrophils % (Auto) 69 % (37-80); Nucleated Red Blood Cell # 0.00 Thou/mm3 (0.00-0.00); Nucleated Red Blood Cell % 0 /100 WBC (0); Platelet Count 105 Thou/mm3 (140-440); RDW Standard Deviation 54.4 fL (35.1-43.9); Red Blood Count 4.59 Miln/mm3 (4.50-5.90); White Blood Count 8.9 Thou/mm3 (3.8-10.6)
[2024-09-29 10:53] LABS: INR 2.8 (0.9-1.3); Partial Thromboplastin Time 45.4 Seconds (22.0-36.0); Prothrombin Time 28.2 Seconds (9.0-12.2)
[2024-09-29 10:58] LABS: Amorphous Crystals,Urine Present (Absent); Bacteria,Urine Rare; Bilirubin,Urine 4+ (Negative); Blood,Urine Negative (Negative); Clarity,Urine Turbid (Clear/Hazy); Color,Urine Drk-Yellow (Lt Yel-Yel); Glucose, Urine 2+ (Negative); Ketones,Urine Negative (Negative); Leukocyte Esterase,Urine Negative (Negative); Nitrite,Urine Negative (Negative); PH,Urine 6.0 (5.0-7.0); Protein,Urine Trace (Neg - Trace); Specific Gravity,Urine 1.025 (1.001-1.035); Squamous Epithelial Cell,Urine 2 /hpf (0-5); Urobilinogen,Urine Negative mg/dL (0.0-1.0); WBC,Urine < 1 /hpf (0-5)
[2024-09-29 11:02] LABS: Alanine Aminotransferase 273 U/L (10-49); Albumin, Serum 2.8 gm/dL (3.5-5.0); Albumin/Globulin Ratio 0.7 (1.2-2.2); Alkaline Phosphatase 235 U/L (46-116); Anion Gap 7 (7-16); Aspartate Amino Transferase 206 U/L (0-34); BUN/Creatinine Ratio 8 Ratio (12-20); Bilirubin,Total 29.1 mg/dL (0.3-1.2); Blood Urea Nitrogen 7 mg/dL (9-23); Calcium 7.8 mg/dL (8.3-10.6); Calcium (Corrected) 8.8 mg/dL (8.5-10.1); Carbon Dioxide 23.3 mMol/L (20.0-31.0); Chloride 97 mMol/L (98-107); Creatinine (Component) 0.9 mg/dL (0.6-1.3); Globulin 4.2 gm/dL (2.3-3.5); Glucose 243 mg/dL (74-106); Lipase 93 U/L (12-53); Osmolality,Calculated 261 (275-295); Potassium 4.4 mMol/L (3.4-5.1); Sodium 127 mMol/L (136-145); Total Protein 7.0 gm/dL (5.7-8.2); eGFR > 60 See Note
--- NOTE | 2024-09-29 11:06 | PC.NURSE ---
PT IN TODAY FOR COUGHING BLOOD, BLOODY STOOLS (BLACK), SWELLING TO BILAT LEGS, AND ABD BLOATED. PT STATES THAT ALL THE SYMPTOMS STARTED 2 WEEKS AGO. PT DID GO SEE HIS PRIMARY MD YESTERDAY AND HAD BEEN SEEN IN THE ER PRIOR. PT IS A/OX4 AND NO DISTRESS IS NOTED AT THIS TIME. PT AWAITING TO BE SEEN BY MD.
--- NOTE | 2024-09-29 11:18 | PC.NURSE ---
PROVIDER AT BEDSIDE AND DID RECTAL EXAM WHICH RESULTED POSITIVE.
--- NOTE | 2024-09-29 11:19 | EDNOTE_ITS ---
ED Abdominal Pain RME/HPI General Chief Complaint: Abdominal Pain Stated complaint: ABD PAIN, NOSEBLEED/VOMIT BLOOD/ BLOODY STOOL Time seen by provider: 09/29/24 09:42 Arrival date/time: 09/29/24 09:40 Source: patient Limitations: no limitations RME / HPI RME / HPI narrative: 44-year-old male who has a history of schizophrenia and cirrhosis is here today with increased abdominal discomfort and distention. He has new jaundice. He states he slowly developed increased abdominal distention over the last 2 weeks. He has had mild nausea and vomiting. He states last to 3 days he has noted some black, tarry, stools. He denies any fevers or chills. He has no urinary changes. He has mild shortness of breath while walking. He is followed by local PCP and GI at [facility]. He was seen here last week and had both CAT scans and ultrasounds of his abdomen. Related Data Home Medications ?Medication ?Instructions ?Recorded ?Confirmed atenolol 25 mg tablet 25 mg PO QDAY 07/29/1909/04 lisinopril 20 mg tablet 20 mg PO QDAY 06/02/2109/04 lovastatin 20 mg tablet 20 mg PO QDAY 06/02/2109/04 lovastatin 40 mg tablet 40 mg PO .qd 09/04/24 metformin 500 mg tablet 500 mg PO QAM 09/04/2409/04 Allergies Allergy/AdvReac Type Severity Reaction Status Date / Time No Known Allergies Allergy Verified 09/29/24 09:44 Review of Systems Review of Systems Systems Reviewed: All systems reviewed, normal except as documented ED Exam General Limitations: Present no limitations General appearance: Present alert and in no apparent distress Head Head exam: Present atraumatic Eye Eye exam: Present normal appearance, PERRL and EOMI ENT ENT exam: Present normal exam, normal oropharynx and mucous membranes moist Neck Neck exam: Present normal inspection, full ROM and trachea midline Chest Chest inspection: Present normal inspection and symmetric chest wall rise Respiratory Respiratory exam: Present normal lung sounds bilaterally Cardiovascular Cardiovascular exam: Present regular rate, normal rhythm and normal heart sounds Abdominal Exam Abdominal exam: Present soft and normal bowel sounds Extremities Exam Extremities exam: Present normal inspection and full ROM Back Exam Back exam: Present normal inspection and full ROM Neurological Exam Neurological exam: Present alert, oriented X3 and CN II-XII intact Psychiatric Psychiatric exam: Present normal affect and normal mood Skin Skin exam: Present warm, dry, intact and normal color Course Course Course Narrative: Case discussed with Dr. Nava with gastroenterology. Patient cannot stay here a s he may need to be considered for liver transplant. We will provide 10 mg of vitamin K to correct his INR. No other interventions were recommended. Case discussed with the hospitalist at [facility] who accepts the patient pending bed availability. We will transfer when possible. Quality Measures none Orders Category Date Time Status Diet Regular Diet 09/29/24 Dinner Active Transfer to another facility [Transfer/Discharge] Stat Discharge 09/29/24 16:26 Active US gall bladder Stat Exams 09/29/24 11:22 Completed XR chest 1V portable Stat Exams 09/29/24 11:24 Completed Ammonia Stat Lab 09/29/24 21:21 Completed CBC Stat Lab 09/29/24 10:23 Completed CBC Stat Lab 09/29/24 21:21 Completed CMP [Comprehensive Metabolic Panel] Stat Lab 09/29/24 10:23 Completed CMP [Comprehensive Metabolic Panel] Stat Lab 09/29/24 21:21 Completed Lipase Stat Lab 09/29/24 10:23 Completed PT [Prothrombin Time with INR] Stat Lab 09/29/24 10:23 Completed PTT [Partial Thromboplastin Time] Stat Lab 09/29/24 10:23 Completed UA [Urinalysis] Stat Lab 09/29/24 10:05 Completed Urine Culture Stat Lab 09/29/24 10:05 Received Morphine Inj Med 09/29/24 21:12 Discontinued 4 mg IVP X1 ONE Phytonadione Inj [Vitamin K Inj] Med 09/29/24 21:36 Discontinued 10 mg SC X1 ONE Sodium Chloride 0.9% 500 ml [Ns] 500 ml Med 09/29/24 11:25 Discontinued IV 125 mls/hr Late Tray Request Routine Oth 09/29/24 16:55 Active Vital Signs Vital signs: Vital Signs Temperature 98.2 F 09/29/24 09:53 Pulse Rate 88 09/29/24 09:53 Respiratory Rate 18 09/29/24 09:53 Blood Pressure 146/88 H 09/29/24 09:53 Pulse Oximetry (%) 98 09/29/24 09:53 Oxygen Delivery Method Room Air 09/29/24 09:53 Abdominal Pain MDM Patient data External records reviewed:: [facility] previous records Clinical information provided by:: patient Social determinants that could affect healthcare access:: mental health Patient has the following chronic illnesses:: Schizophrenia, hepatitis, cirrhosis How is presenting disease/condition affected by chronic disease/condition?: exacerbated by Evaluation data The following diagnostics were reviewed and interpreted by me:: lab results (Elevated bilirubin) and radiology exam(s) (CT and ultrasound reveal ascites with no obstructive process) Lab and/or radiology exams considered but not ordered:: n/a Interpretation Summary: Liver failure Medications / Prescriptions Medications or Prescriptions considered but not ordered:: n/a Medication administrations:: Medication Administration History Discontinued Medications Sodium Chloride (Ns) 500 mls @ 125 mls/hr IV .Q4H ONE Stop: 09/29/24 15:24 Last Infusion: 09/29/24 17:16 Dose: Infused Documented By: Admin: 09/29/24 12:40 Dose: 125 mls/hr Documented By: ROLANDO Morphine Sulfate (Morphine Sulf Inj 10 Mg/Ml Vial) 4 mg IVP X1 ONE Stop: 09/29/24 21:13 Last Admin: 09/29/24 21:44 Dose: 4 mg Documented By: KENDY Phytonadione (Phytonadione Inj 10 Mg/Ml Amp) 10 mg SC X1 ONE Stop: 09/29/24 21:37 Last Admin: 09/29/24 21:45 Dose: 10 mg Documented By: KENDY See above Consultations Consultation(s) initiated? (list below): No Diagnosis Differential diagnosis abdominal pain: abdominal pain, constipation, gastroenteritis, pancreatitis and small bowel obstruction Most likely diagnosis given after review of the tests above:: Acute liver failure Admission Indicated Admission indicated?: not indicated Admission Request Was there a request for admission?: Yes Admission Attestation Admission request attestation: Discussed case with [] from Hospitalist service regarding admission. Discussed patients ED course, exam findings, labs, and radiology results. The Hospitalist [agrees,declines] to accept the patient for admission. Disposition Plan Disposition Plan: Transfer Discharge Plan Plan Patient Disposition: [facility] Facility Pt Being Transferred to: [facility] Service Needed for Transfer: Interventional Radiology Patient condition on transfer: Stable Prescriptions/Referrals Prescriptions/Med Rec: No Action lisinopril 20 mg tablet 20 mg PO QDAY lovastatin 20 mg tablet 20 mg PO QDAY atenolol 25 mg Tablet 25 mg PO QDAY metformin 500 mg tablet 500 mg PO QAM lovastatin 40 mg tablet 40 mg PO .qd Patient Comments: TAKE ONE TABLET BY MOUTH EVERY EVENING WITH FOOD FOR CHOLESTEROL Referrals: Antonio Morrell MD [Primary Care Provider] - In 1 week Problem List Clinical Impression: Acute hepatic failure Patient/Caregiver Discharge Instructions Print Language: Citizen Of [place] Stand Alone Forms: Annalise Award Info., Patient Portal Info Letter
--- NOTE | 2024-09-29 11:22 | XR_ITS ---
Examination: Abdomen sonogram, Limited Date and time of exam: September 29, 2024, 1206 hrs. Indications: Right upper abdominal pain beginning 3 days ago Technique: Real-time chapman scale transabdominal sonographic images of the upper abdomen obtained. Findings: Gallbladder not depicted Common bile duct pancreas obscured by bowel gas Liver 12.55 cm, ascites noted Normal hepatopedal portal venous flow Patent IVC Impression: Limited study No focal liver lesions. Moderate ascites
--- NOTE | 2024-09-29 11:24 | XR_ITS ---
Examination: AP chest single view Technique: Portable sitting AP chest single view. Date and time: September 29, 2024, 1133 hrs., Comparison September 25, 2024 Indications: Dyspnea today. Findings: Heart size. The lungs are clear. The osseous structures are intact. Impression: No active disease.
--- NOTE | 2024-09-29 12:09 | PC.NURSE ---
PT TAKEN TO ULTRASOUND VIA WC
[2024-09-29] MEDS: SODIUM CHLORIDE 0.9% 500 ML 500 ML 125 ML IV (12:40)
--- NOTE | 2024-09-29 16:07 | PC.CC ---
Addendum entered by Adilia Rudolph RN 09/29/24 19:29: Passdown and transfer packet w/ CD given to CHELLE Stack. Addendum entered by Adilia Rudolph RN 09/29/24 18:17: 1817: still uploading images through [employer]. 1738: called [facility], spoke to Evert, transfer request initiated. received [employer] link to upload images. Addendum entered by Adilia Rudolph RN 09/29/24 17:37: 1700: sent to clinicals to [facility] and [facility] and [facility] 1652: received call from Earnest, he stated they have to decline pt d/t to capacity. Debbie made aware. I planned to send clinicals to [facility], informed by Karen bowling/ [facility] TC that they can not accept patients for inpatient IR. their IR services is outpatient only. 1619: spoke to Earnest bowling/ [facility], he asked to speak to Debbie, call initiated. Original Note: received call from ED nurse Taya for transfer request for GI services for elevated T. BILI from 09/25/24 per Debbie. Clinicals sent to [facility], pt recently dc'd from [place] for GI.
[2024-09-29 21:33] LABS: Basophils # (Auto) 0.1 Thou/mm3 (0.0-0.2); Basophils % (Auto) 1 % (0-2.5); Eosinophils # (Auto) 0.1 Thou/mm3 (0.0-0.5); Eosinophils % (Auto) 1 % (0-10); Hematocrit 36.0 % (41.0-53.0); Hemoglobin 12.4 g/dL (13.5-16.0); Immature Granulocytes Auto 0.03 Thou/mm3 (0.00-0.00); Lymphocytes # (Auto) 2.0 Thou/mm3 (1.0-4.8); Lymphocytes % (Auto) 22 % (10-50); Mean Corpuscular HGB Conc 34.4 g/dl (31.0-37.0); Mean Corpuscular Hemoglobin 28.1 pg (25.0-35.0); Mean Corpuscular Volume 81 fL (80-100); Monocytes # (Auto) 1.2 Thou/mm3 (0.0-0.8); Monocytes % (Auto) 13 % (0-12); Neutrophils # (Auto) 5.7 Thou/mm3 (1.8-7.7); Neutrophils % (Auto) 63 % (37-80); Nucleated Red Blood Cell # 0.02 Thou/mm3 (0.00-0.00); Nucleated Red Blood Cell % 0 /100 WBC (0); Platelet Count 101 Thou/mm3 (140-440); RDW Standard Deviation 55.2 fL (35.1-43.9); Red Blood Count 4.42 Miln/mm3 (4.50-5.90); White Blood Count 9.0 Thou/mm3 (3.8-10.6)
[2024-09-29] MEDS: MORPHINE SULF INJ 10 MG/ML VIAL 4 MG IVP (21:44)
[2024-09-29] MEDS: PHYTONADIONE INJ 10 MG/ML AMP SC (21:45)
[2024-09-29 21:49] LABS: Ammonia 33 uMol/L (11-32)
[2024-09-29 21:51] LABS: Alanine Aminotransferase 239 U/L (10-49); Albumin, Serum 2.6 gm/dL (3.5-5.0); Albumin/Globulin Ratio 0.7 (1.2-2.2); Anion Gap 7 (7-16); Aspartate Amino Transferase 184 U/L (0-34); BUN/Creatinine Ratio 8 Ratio (12-20); Blood Urea Nitrogen 6 mg/dL (9-23); Calcium 7.8 mg/dL (8.3-10.6); Calcium (Corrected) 8.9 mg/dL (8.5-10.1); Carbon Dioxide 24.3 mMol/L (20.0-31.0); Chloride 100 mMol/L (98-107); Creatinine (Component) 0.8 mg/dL (0.6-1.3); Globulin 3.9 gm/dL (2.3-3.5); Glucose 143 mg/dL (74-106); Osmolality,Calculated 262 (275-295); Potassium 3.9 mMol/L (3.4-5.1); Sodium 131 mMol/L (136-145); Total Protein 6.5 gm/dL (5.7-8.2); eGFR > 60 See Note
[2024-09-29 21:52] LABS: Alkaline Phosphatase 200 U/L (46-116); Bilirubin,Total 26.5 mg/dL (0.3-1.2)
--- NOTE | 2024-09-29 22:33 | PC.NURSE ---
I SPOKE WITH DYLON FROM [facility] TO SEE IF THEY ARE AVAILABLE FOR TRANSPORT AND WE ARE PENING A CALL BACK AT THIS TIME.
--- NOTE | 2024-09-29 22:53 | PC.NURSE ---
THIS PT IS ACCEPTED BY [facility] WITH A ETA OF 0021. THE REASON FOR THIS ETA IS BECAUSE THE FIXED WING IS COMING FROM [facility]. KARIN WAS THE [place] REP I SPOKE WITH FOR ACCEPTING INFORMATION.
--- NOTE | 2024-09-29 23:17 | PC.NURSE ---
NURSE TO NURSE REPORT GIVEN OVER THE PHONE TO CHELLE HASSAN AT [facility].
[2024-09-30] VITALS: BP 128/82; PULSE 69; RESP 14; TEMP 37; O2SAT 99
[2024-09-30] MEDS: ONDANSETRON INJ 2 MG/ML INJ 2 ML 4 MG IV (00:43)
== END 2024-09-30 02:37 | disposition short-term general hospital (02) ==
PROVIDERS: Nurse Practitioner Family; Physician Assistant Medical; Emergency Provider Emergency Medicine; PCP Family Medicine
DX: K72.00 Acute and subacute hepatic failure without coma (principal); K74.60 Unspecified cirrhosis of liver; R18.8 Other ascites
CPT/HCPCS: 36415; 71045; 76705; 80053; 81001; 82140; 83690; 85025; 85610; 85730; 87086; 96361; 96374; 96375; 99284; J2270; J2405; J3430; J7999